=== PATIENT | female | born 1950 | race Caucasian/White ===

== ENCOUNTER 2019-04-29 04:45 | Day surgery (SDC) | payer OTHER ==
[2019-04-28 13:02] VITALS: BMI 38.7
[2019-04-29] MEDS ORDERED: DEXAMETHASONE SOD PHOSPHATE/PF 10 MG/ML SDV ONE (07:34)
[2019-04-29] MEDS ORDERED: BUPIVACAINE HCL/PF 0.25% (2.5MG/ML) 10 ML VIAL ONE (07:35)
[2019-04-29] MEDS ORDERED: MIDAZOLAM HCL 2 MG/2 ML SINGLE DOSE VIAL ONE ×2 (07:39)
[2019-04-29] MEDS ORDERED: SUCCINYLCHOLINE CHLORIDE 200 MG/10 ML SYRINGE ONE (07:59)
[2019-04-29] MEDS ORDERED: PROPOFOL 20 ML ONE (07:59)
[2019-04-29] MEDS ORDERED: ceFAZolin SODIUM 1 GM VIAL IVPB ONE (08:22)
[2019-04-29] MEDS ORDERED: ceFAZolin SODIUM 1 GM VIAL ONE (08:27)
[2019-04-29] MEDS ORDERED: DEXAMETHASONE SOD PHOSPHATE 4 MG/1 ML VIAL ONE (08:27)
--- NOTE | 2019-04-29 10:00 | OP ---
Operative Note - Note: Operative Date: 04/29/19 Pre-Operative Diagnosis: Left distal radius fracture Operation: left distal radius ORIF, brachioradialis tenotomy Implants: [employer] DVR plate, and screws, and Sandra bone graft Surgeon: Tae Alvarado Heavy Duty Mechanic: Ricardo Gaviria Anesthesiologist/BIOMETRICS TECHNICIAN: Alley Graham Anesthesia: General, Local Estimated Blood Loss (mls): 0 Drains, Volume Out (mls): 0 Blood Volume Replaced (mls): 0 Fluid Volume Replaced (mls): 700
[2019-04-29] MEDS ORDERED: ONDANSETRON 4 MG/2 ML VIAL IVPUSH PRN (10:26)
[2019-04-29] MEDS ORDERED: oxyCODONE HCL 5 MG TABLET PO PRN (10:26)
[2019-04-29] MEDS ORDERED: LACTATED RINGERS SOLUTION 1,000 ML IV SCH (10:30)
[2019-04-29 11:29] VITALS: BP 114/44; PULSE 64; TEMP 97.4
--- NOTE | 2019-04-29 13:48 | OP ---
DATE OF OPERATION: 04/29/2019 PREOPERATIVE DIAGNOSIS: Left intraarticular comminuted displaced distal radius fracture. POSTOPERATIVE DIAGNOSIS: Left intraarticular comminuted displaced distal radius fracture. PROCEDURE: Left distal radius open reduction and internal fixation and brachioradialis tenotomy. SURGEON: Tam Levine MD SPORTS BOOKMAKER: Ricardo Gaviria MD ANESTHESIA: Alley Graham, REF-CRN. Left interscalene block with LM anesthesia. DRAINS: None. COMPLICATIONS: None. SPECIMEN: None. BLOOD LOSS: None. BLOOD GIVEN: None. FLUID REPLACEMENT: 700 mL Plasmalyte. This patient is a 68-year-old female with a preoperative diagnosis of a comminuted intraarticular displaced left distal radius fracture. After understanding the potential risks, complications, alternatives, and benefits to surgical versus nonsurgical treatment, the patient elected to undergo this procedure. She understands that her left wrist will never be the same and may very well have decreased range of motion, decreased function, decreased strength. The patient was brought to the operating room, peripheral IV placed, IV sedation given, left interscalene block was performed, 2 g of IV Ancef was given. LM anesthesia was induced. She was placed into the supine position. The left upper extremity was prepped and draped in sterile fashion, elevated, exsanguinated with an Esmarch bandage, tourniquet inflated to 250 mmHg. A typical FCR approach was marked out with a marking pen. Incision made with a number 15 scalpel blade. Subcutaneous hemostasis was achieved with a bipolar cautery. Dissection done with Littler scissors down to the FCR tendon. The sheath was opened, nerves retracted with Weitlaner retractors in a radial direction, protecting the radial artery. A fresh number 15 scalpel blade was utilized to cut down to the fascia of the pronator quadratus. I was able to peel it off the distal radius using the number 15 scalpel blade and the periosteal elevator, exposing the fracture site. It was highly comminuted, much more displaced than it was in the office. Patient seen to have brittle and osteoporotic bone. The area was copiously irrigated and washed out. A small curette was used to remove hematoma and muscle debris from the fracture site. There were 2 free-floating fragments with both medullary and cancellous bone. These were cleaned off of soft tissue and put on the back table for later bone grafting. I then did a provisional reduction and pinned it in place with a 0.062 K wire. X-rays were taken. I fine-tuned the reduction. X-rays were taken again and overall I was very happy with the reestablishment of radial height, inclination, and volar tilt. There was a metaphysial defect, therefore, at this point 5 mL of Anasco putty bone graft was opened and I put in about 1.5 mL of Anasco putty into the metaphysial defect and then plugged the window with the bone chips that had come out previously. Overall it came together quite nicely, was being held in place with the K wire. A [employer] low-profile DVR titanium plate was placed onto the volar aspect of the left distal radius, pinned in place with 2 K wires. X-rays taken, documenting excellent position of the fracture fragments as well as the hardware. Then in the standard fashion, 3 proximal 3.5-mm screws were placed (of 12, 10, and 10 mm), and 6 distal screws were placed using both the proximal and distal rows using the 1.5-mm drill bit for the 2.5-mm partially-threaded locking screws. Overall it came together quite nicely. Multiple x-rays were taken throughout the procedure. Final x-rays were taken in AP, lateral, and multiple planes. All the extra guides were removed. Overall, I was quite happy with the way it looked. The pronator quadratus was closed with 2-0 Vicryl over the plate. Final skin reapproximation was done with 4-0 undyed Vicryl in the deep dermal layer, final skin reapproximation was done with a running subcuticular 4-0 Biosyn stitch. The area was then washed and dried, covered with Steri-Strips, 4 x 4's, fluffs for the fingers, Webril, and a 4-inch Ortho-Glass volar splint was applied, wrapped with Dileep and Coban. The tourniquet was taken down after a total tourniquet time of about 70 minutes. There were no complications during the case. The patient tolerated the procedure quite well and was brought to the ambulatory recovery room in stable condition. TAM LEVINE M.D. [id number]
== END 2019-04-29 15:25 | disposition home or self-care (01) ==
LOC: JASU-SURG 04:45
PROVIDERS: ATTEND Orthopaedic Surgery
PROC: 0PSJ04Z Reposition Left Radius with Internal Fixation Device, Open Approach (ICD-10-PCS; principal; 2019-04-29 08:00)
DX: S52.502A Unspecified fracture of the lower end of left radius, initial encounter for closed fracture (principal); X58.XXXA Exposure to other specified factors, initial encounter; Y93.9 Activity, unspecified; Y92.9 Unspecified place or not applicable
CPT/HCPCS: 25608; C1713; 76000-TC-FY; 94760